=== PATIENT | female | born 1975 | race African-American/Black ===

== ENCOUNTER 2018-01-20 10:06 | Emergency (ER) | payer OTHER ==
[~2018-01-20] VITALS: Ht 160 cm; Wt 72.6 kg
[~2018-01-20 10:06] MED LIST: ASPIR 8181 MG ORAL; GUAIFENESIN1200 MG PO; NEXAFED30 MG ORAL; NKM; PROMETHAZINE-C118 M1 ORAL; TAMIFLU75 MG ORAL; ZOFRAN ODT4 MG ORAL
[2018-01-20 10:13] VITALS: BP 122/78
--- NOTE | 2018-01-20 10:41 | Emergency Room Report ---
History of Present Illness General Chief Complaint: Flu Like Symptoms Source: Patient Present Illness HPI Patient persist with complaints of cough and congestion over the past 4 days No obvious fevers were documented denies any chest pain denies any vomiting Patient reports that she does have a history of smoking She has not been up to get much phlegm out at this point denies any rash as any recent travel she says that she was exposed the rain recently and she feels that that initiated her problems Allergies: Coded Allergies: No Known Allergies (Unverified , 04/17/13) Patient History Past Medical History: see triage record Pertinent Family History: none Last Menstrual Period: 01/03/18 Reviewed Nursing Documentation: PMH: Agreed; PSxH: Agreed Nursing Documentation-PMH Past Medical History: No Stated History Review of Systems All Other Systems: negative except mentioned in HPI Physical Exam Vital Signs Date Time Temp Pulse Resp B/P (MAP) Pulse Ox O2 Delivery O2 Flow Rate FiO2 01/20/18 10:08 98.1 87 18 122/78 99 Room Air 98.1 Sp02 EP Interpretation: reviewed, normal General Appearance: well appearing, no apparent distress Head: normocephalic, atraumatic Eyes: bilateral eye PERRL, bilateral eye EOMI ENT: hearing grossly normal, normal pharynx, TMs + canals normal, uvula midline Neck: full range of motion, supple, no meningismus, no bony tend Respiratory: no respiratory distress, no retraction, no accessory muscle use, crackles - Both lower lobes Cardiovascular #1: normal peripheral pulses, regular rate, rhythm, no edema, no gallop, no JVD, no murmur Gastrointestinal: normal bowel sounds, non tender, soft, no mass, no organomegaly, non-distended, no guarding, no hernia, no pulsatile mass, no rebound Genitourinary: no CVA tenderness Musculoskeletal: normal inspection Neurologic: oriented x3, responsive, optoelectronics engineer III-XII nml as tested, motor strength/ tone normal, sensory intact Psychiatric: mood/affect normal Skin: normal color, no rash, warm/dry, palpation normal Lymphatic: normal inspection, no adenopathy Medical Decision Making Diagnostic Impression: Primary Impression: Community acquired pneumonia ER Course Patient's findings are consistent with community-acquired pneumonia At this time patient is saturating well, Does not appear to be in acute respiratory distress emergency imaging has not been done however patient will be treated appropriately and requires close follow-up Patient will return if symptoms are not improving in the next 3 days for possible imaging Last Vital Signs Date Time Temp Pulse Resp B/P (MAP) Pulse Ox O2 Delivery O2 Flow Rate FiO2 01/20/18 10:13 98.1 87 18 122/78 99 Room Air 98.1 Status: unchanged Disposition: HOME, SELF-CARE Condition: Stable Referrals: NON PHYSICIAN (PCP) Additional Instructions: Patient is provided with the discharge instructions notified to follow up with primary doctor in the next 2-3 days otherwise return to the er with any worsening symptoms. Please note that this report is being documented using [employer] technology. This can lead to erroneous entry secondary to incorrect interpretation by the dictating instrument. Anna Valerio DO Jan 20, 2018 10:41
[2018-01-20] MEDS ORDERED: ROBITUSSIN NIG237 ML PO (10:42)
[2018-01-20] MEDS ORDERED: ZITHROMAX250 MG ORAL (10:42)
[2018-01-20] MEDS ORDERED: ALBUTEROL SULF8.5 GM INH (10:42)
[2018-01-20 10:47] VITALS: BP 122/78
== END 2018-01-20 10:47 | disposition home or self-care (01) ==
LOC: EMR 10:32
DX: J18.9 Pneumonia, unspecified organism (principal)
CPT/HCPCS: 99282